=== PATIENT | female | born 1950 | race Caucasian/White ===

== ENCOUNTER 2018-03-01 08:47 | Observation (INO) | payer MEDICARE, OTHER ==
--- NOTE | 2018-03-01 09:38 | ED ---
Neuro HPI - General Chief Complaint: Neuro Symptoms/Deficit Stated Complaint: stroke symptoms, poss heart attack Time Seen by Provider: 03/01/18 09:02 Source: patient, RN notes reviewed Mode of arrival: wheelchair Limitations: no limitations - History of Present Illness Is the patient presenting with stroke symptoms?: Yes Initial Comments: This is a 60-year-old female who states she had the onset of upon waking at 3 AM after having gone to bed at 10:30 PM the night before of right-sided tingling and weakness. She also states she had some brief chest pain that lasted for about 2 minutes mild in severity she has some nausea. She states she still has the weakness and numbness. She states she took some aspirin at about 3 AM. No more chest pain. She had nausea with diarrhea this started around the same time no vomiting. No prior history of strokes or heart attack. No trauma no other modifying factors. - Related Data Home Medications: Home Medications Medication Instructions Recorded Confirmed Aspirin 81 mg PO ONCE 03/01/18 03/01/18 Allergies/Adverse Reactions: Allergies Allergy/AdvReac Type Severity Reaction Status Date / Time No Known Allergies Allergy Verified 03/01/18 09:22 Review of Systems ROS Statement: Those systems with pertinent positive or pertinent negative responses have been documented in the HPI. ROS Other: All systems not noted in ROS Statement are negative. General Exam - General Exam Comments Initial Comments: This a well-developed well-nourished awake alert oriented 3 female Limitations: no limitations General appearance: alert, anxious Head exam: Present: atraumatic, normocephalic, normal inspection Eye exam: Present: normal appearance, PERRL, EOMI. Absent: scleral icterus, conjunctival injection, periorbital swelling ENT exam: Present: normal exam, mucous membranes moist Neck exam: Present: normal inspection. Absent: tenderness, meningismus, lymphadenopathy Respiratory exam: Present: normal lung sounds bilaterally. Absent: respiratory distress, wheezes, rales, rhonchi, stridor Cardiovascular Exam: Present: regular rate, normal rhythm, normal heart sounds. Absent: systolic murmur, diastolic murmur, rubs, gallop, clicks GI/Abdominal exam: Present: soft, normal bowel sounds. Absent: distended, tenderness, guarding, rebound, rigid Extremities exam: Present: normal inspection, normal capillary refill. Absent: full ROM, tenderness, pedal edema, joint swelling, calf tenderness Back exam: Present: normal inspection Neurological exam: Present: alert, oriented X3, CN II-XII intact, motor sensory deficit (Diminished sensation and motor strength right upper lower extremity.) Psychiatric exam: Present: normal affect, normal mood Skin exam: Present: warm, dry, intact, normal color. Absent: rash Stroke MDM - Lab Data Result diagrams: 03/01/18 09:30 03/01/18 09:30 Lab Results 03/01/18 03/01/18 03/01/18 Range/Units 09:30 09:30 09:30 WBC 7.1 (3.8-10.6) k/uL RBC 5.01 (3.80-5.40) m/uL Hgb 15.2 (11.4-16.0) gm/dL Hct 45.5 (34.0-46.0) % MCV 90.7 (80.0-100.0) fL MCH 30.3 (25.0-35.0) pg MCHC 33.5 (31.0-37.0) g/dL RDW 13.2 (11.5-15.5) % Plt Count 289 (150-450) k/uL Neutrophils % 67 % Lymphocytes % 23 % Monocytes % 6 % Eosinophils % 2 % Basophils % 1 % Neutrophils # 4.8 (1.3-7.7) k/uL Lymphocytes # 1.6 (1.0-4.8) k/uL Monocytes # 0.4 (0-1.0) k/uL Eosinophils # 0.1 (0-0.7) k/uL Basophils # 0.0 (0-0.2) k/uL PT (9.0-12.0) sec INR (<1.2) APTT (22.0-30.0) sec Sodium 140 (137-145) mmol/L Potassium 4.3 (3.5-5.1) mmol/L Chloride 108 H (98-107) mmol/L Carbon Dioxide 23 (22-30) mmol/L Anion Gap 9 mmol/L BUN 24 H (7-17) mg/dL Creatinine 0.68 (0.52-1.04) mg/dL Est GFR (CKD-EPI)AfAm >90 (>60 ml/min/1.73 sqM) Est GFR (CKD-EPI)NonAf >90 (>60 ml/min/1.73 sqM) Glucose 113 H (74-99) mg/dL Calcium 9.5 (8.4-10.2) mg/dL Total Bilirubin 0.7 (0.2-1.3) mg/dL AST 27 (14-36) U/L ALT 40 (9-52) U/L Alkaline Phosphatase 108 (38-126) U/L Total Creatine Kinase 37 (30-135) U/L CK-MB (CK-2) 0.4 (0.0-2.4) ng/mL CK-MB (CK-2) Rel Index 1.1 Troponin I <0.012 (0.000-0.034) ng/mL Total Protein 7.4 (6.3-8.2) g/dL Albumin 4.2 (3.5-5.0) g/dL 03/01/18 Range/Units 09:30 WBC (3.8-10.6) k/uL RBC (3.80-5.40) m/uL Hgb (11.4-16.0) gm/dL Hct (34.0-46.0) % MCV (80.0-100.0) fL MCH (25.0-35.0) pg MCHC (31.0-37.0) g/dL RDW (11.5-15.5) % Plt Count (150-450) k/uL Neutrophils % % Lymphocytes % % Monocytes % % Eosinophils % % Basophils % % Neutrophils # (1.3-7.7) k/uL Lymphocytes # (1.0-4.8) k/uL Monocytes # (0-1.0) k/uL Eosinophils # (0-0.7) k/uL Basophils # (0-0.2) k/uL PT 9.7 (9.0-12.0) sec INR 1.0 (<1.2) APTT 22.8 (22.0-30.0) sec Sodium (137-145) mmol/L Potassium (3.5-5.1) mmol/L Chloride (98-107) mmol/L Carbon Dioxide (22-30) mmol/L Anion Gap mmol/L BUN (7-17) mg/dL Creatinine (0.52-1.04) mg/dL Est GFR (CKD-EPI)AfAm (>60 ml/min/1.73 sqM) Est GFR (CKD-EPI)NonAf (>60 ml/min/1.73 sqM) Glucose (74-99) mg/dL Calcium (8.4-10.2) mg/dL Total Bilirubin (0.2-1.3) mg/dL AST (14-36) U/L ALT (9-52) U/L Alkaline Phosphatase (38-126) U/L Total Creatine Kinase (30-135) U/L CK-MB (CK-2) (0.0-2.4) ng/mL CK-MB (CK-2) Rel Index Troponin I (0.000-0.034) ng/mL Total Protein (6.3-8.2) g/dL Albumin (3.5-5.0) g/dL - NIH Stroke Scale 1a. Level of Consciousness: (0) alert 1b. LOC Questions: (0) answers correctly 1c. LOC Commands: (0) performs tasks correctly 2. Best Gaze: (0) normal 3. Visual: (0) no visual loss 4. Facial Palsy: (0) normal symmetrical movement 5a. Motor Arm Left: (0) no drift 5b. Motor Arm Right: (0) no drift 6a. Motor Leg Left: (0) no drift 6b. Motor Leg Right: (0) no drift 7. Limb Ataxia: (0) absent 8. Sensory: (0) normal 9. Best Language: (0) no aphasia 10. Dysarthria: (0) normal 11. Extinction/Inattention: (0) no abnormality - Medical Decision Making Reevaluation the patient on several occasions reveals she had improvement the presentation appears consistent with a TIA at this time. She did say she went to bed at 10:30 last night and woke up at 3:00 symptoms she describes the initial presentation was beyond TPA intervention. The CT shows no evidence of obstruction the major vessels. Patient will be admitted for inpatient evaluation and neurological consultation noncontrast MRI of the brain. I did discuss case Dr. Kathleen. - EKG Data -: EKG Interpreted by Me EKG shows normal: sinus rhythm (Sinus rhythm of 96 IL interval 154 QRS 70 QT since QTC 342/[address].) Past Medical History Past Medical History: Hypertension History of Any Multi-Drug Resistant Organisms: None Reported Past Surgical History: Cholecystectomy, Tonsillectomy, Tubal Ligation Past Psychological History: No Psychological Hx Reported Smoking Status: Never smoker Past Alcohol Use History: None Reported Past Drug Use History: None Reported Course Vital Signs 03/01/18 03/01/18 03/01/18 08:53 09:13 09:30 Temperature 99.6 F Pulse Rate 100 96 96 Respiratory 18 Rate Blood Pressure 151/84 142/83 O2 Sat by Pulse 93 L 39 L Oximetry 03/01/18 03/01/18 03/01/18 10:00 10:30 11:00 Temperature Pulse Rate 87 87 84 Respiratory Rate Blood Pressure 149/91 135/81 O2 Sat by Pulse 90 L Oximetry 03/01/18 03/01/18 11:30 12:00 Temperature Pulse Rate 82 80 Respiratory 18 18 Rate Blood Pressure 130/83 132/88 O2 Sat by Pulse 93 L Oximetry - Reevaluation(s) Reevaluation #1: 03/01/18 12:25 Evaluation patient reveals she felt improvement she was able ambulate with some assistance. This was observed twice. Critical Care Time Critical Care Time: Yes Critical Care Time: 33 minutes of critical care time which includes initial presentation with history physical labs x-rays multiple re-evaluations the patient. Discussed with patient family and different occasions discussion with the admitting physician admission orders and documentation of the above. Patient did initially demonstrate some slight apparent weakness to the upper and lower extremity and the right the NIH stroke scale however was 0. The above has improved. Disposition Clinical Impression: Transient cerebral ischemia Disposition: ADMITTED IP TO THIS [facility] Condition: Stable Referrals: Lane Morgan DO [Primary Care Provider] - 1-2 days
[2018-03-01 09:55] LABS: Basophils % (A) 1 %; Eosinophils # (A) 0.1 k/uL (0-0.7); Eosinophils % (A) 2 %; HCT 45.5 % (34.0-46.0); HGB 15.2 gm/dL (11.4-16.0); Lymphocytes # (A) 1.6 k/uL (1.0-4.8); Lymphocytes % (A) 23 %; MCH 30.3 pg (25.0-35.0); MCHC 33.5 g/dL (31.0-37.0); MCV 90.7 fL (80.0-100.0); Mean Platelet Volume 7.4; Monocytes # (A) 0.4 k/uL (0-1.0); Monocytes % (A) 6 %; Neutrophils # (A) 4.8 k/uL (1.3-7.7); Neutrophils % (A) 67 %; Platelet Count 289 k/uL (150-450); RBC 5.01 m/uL (3.80-5.40); RDW 13.2 % (11.5-15.5); WBC 7.1 k/uL (3.8-10.6)
[2018-03-01 10:06] LABS: ALT 40 U/L (9-52); AST 27 U/L (14-36); Albumin 4.2 g/dL (3.5-5.0); Alkaline Phosphatase 108 U/L (38-126); Anion Gap 9 mmol/L; Blood Urea Nitrogen 24 mg/dL (7-17); Calcium 9.5 mg/dL (8.4-10.2); Carbon Dioxide 23 mmol/L (22-30); Chloride 108 mmol/L (98-107); Glucose 113 mg/dL (74-99); Potassium 4.3 mmol/L (3.5-5.1); Sodium 140 mmol/L (137-145); Total Bilirubin 0.7 mg/dL (0.2-1.3); Total Protein 7.4 g/dL (6.3-8.2)
[2018-03-01 10:07] LABS: Partial Thromboplastin Time 22.8 sec (22.0-30.0); Prothrombin Time 9.7 sec (9.0-12.0)
[2018-03-01 10:21] LABS: Creatine Kinase 37 U/L (30-135)
[2018-03-01 10:34] LABS: Creatine Kinase MB 0.4 ng/mL (0.0-2.4); Troponin I <0.012 ng/mL (0.000-0.034)
--- NOTE | 2018-03-01 10:44 | CT ---
EXAMINATION TYPE: CT brain wo con for TPA DATE OF EXAM: 03/01/2018 COMPARISON: None HISTORY: Right arm numbness CT DLP: [address] of the brain was performed. The ventricles, basal cisterns and sulci overlying the cerebral convexities demonstrate mild enlargem ent. There is no evidence for intracranial hemorrhage or sulcal effacement. There is decreased attenuation about the periventricular white matter and deep white matter of both c erebral hemispheres, compatible with chronic small vessel ischemia. Differential diagnosis does inclu de demyelination. No mass effects are seen.No midline shift. Osseous calvarium is intact. If symptoms persist consider MRI. IMPRESSION: 1. Age related atrophic and chronic small vessel ischemic change without acute intracranial process s een at this time.
--- NOTE | 2018-03-01 11:23 | XR ---
EXAMINATION TYPE: XR chest 2V DATE OF EXAM: 03/01/2018 COMPARISON: 03/05/2015 HISTORY: Chest pain and nausea TECHNIQUE: Frontal and lateral views of the chest are obtained. FINDINGS: There is no focal air space opacity, pleural effusion, or pneumothorax seen. Slight right hemidiaphragm elevation is chronic. The cardiac silhouette size is enlarged. The osseous structures are intact. Minimal degenerative changes of the thoracic spine are noted. Cholecystectomy clips are incidentally seen. IMPRESSION: No acute cardiopulmonary process.
--- NOTE | 2018-03-01 11:29 | CT ---
EXAMINATION TYPE: CT angio head neck DATE OF EXAM: 03/01/2018 HISTORY: Right arm numbness COMPARISON: NONE CT DLP: 515.2 mGycm. Automated Exposure Control for Dose Reduction was Utilized. TECHNIQUE: CTA scan of the neck is performed with IV Contrast, patient injected with 60 mL of Isovue 370, axial images are obtained, coronal and sagittal reformatted images are reviewed. Three-D recons tructed images are created on an independent workstation and reviewed. FINDINGS: Carotid/Vascular Structures: There is a conventional three-vessel branch pattern of the aortic arch. No hemodynamically significant stenosis is seen of either cervical portion of the common carotid or i nternal carotid arteries. Very minimal atherosclerosis is seen of the aortic arch. Vertebral arteries are codominant and patent. Basilar artery is also patent. Proximal aspect of the PICA is not seen al though distal aspect feels, likely related to slice selection given its very small size. A left posterior communicating artery is not definitively seen and may be diminutive or congenitally absent. Therefore the [place] is not definitively intact. No large vessel vascular occlusion or hemodynamically significant stenosis is seen. No intracranial aneurysm nor arterial venous malfor mation is seen. No aneurysmal outpouching is identified. Other: Minimal dependent atelectasis seen of the lung apices. Moderate multilevel degenerative change s of the cervical spine are present. Paranasal sinuses are well aerated other than scant amount of mu cosal thickening within the ethmoid sinuses. Mastoid air cells are well aerated. Marta bullosa are i ncidentally seen as well as a small leftward nasal septal spur. IMPRESSION: No evidence of large vessel vascular occlusion of the head or neck, aneurysmal outpouchi ng, or dissection.
[2018-03-01] MEDS ORDERED: SODIUM CHLORIDE 0.9% 1,000 ML IV SCH (12:30)
[2018-03-01] MEDS: ACETAMINOPHEN TAB 325 MG TAB PO PRN ×2 (14:30→19:48)
--- NOTE | 2018-03-01 17:37 | MR ---
EXAMINATION TYPE: MR brain wo con DATE OF EXAM: 03/01/2018 COMPARISON: None HISTORY: Vertigo, nausea, unsteady gait Standard multiplanar, multisequence MRI departmental protocol Multiplanar, multisequence images of the brain were acquired. Diffusion weighted imaging was performe d. FINDINGS: On the T2 and FLAIR images there is a 1 cm focus of increased signal in the left posterior temporal lobe at the henderson-white matter junction. Cerebellum is intact. There is no evidence of pattern cleaner ior fossa mass. There is 3 mm focus in the white matter left posterior frontal lobe. There are 3 mm f oci in the white matter of the left and right posterior frontal lobes near the convexity. There is no midline shift. There is no mass effect. There is no sign of intracranial hemorrhage. Corpus callosum appears normal. Brainstem is intact. Sella turcica appears normal. IMPRESSION: There are a few white matter lesions as above that are nonspecific. These are not near the ventricles and I do not suspect demyelinating disease. No evidence of a cortical infarct. No evidence of hemorr jack.
[2018-03-01] MEDS ORDERED: ATORVASTATIN 20 MG TAB PO SCH (21:00)
--- NOTE | 2018-03-02 01:30 | CONS ---
CONSULTATION DATE OF CONSULTATION: March 01, 2018. CHIEF COMPLAINT: Transient ischemic attack. HISTORY OF PRESENT ILLNESS: Mrs. Pearce is a pleasant 68-year-old female who is being evaluated by the neurology service per the request of Dr. Kathleen for a transient ischemic attack. The patient was brought into [facility] emergency room after she woke up this morning with symptoms of right-sided weakness and numbness. She denied having any symptoms when she went to sleep last night. In the emergency room, she was found to have some sensory deficit on the right side along with mild weakness. Overall, her symptoms lasted approximately 2 hours after her arrival to the emergency room and they resolved spontaneously. At the time of my evaluation, she still notices mild numbness involving her right lateral side region and denies any weakness. She did not have any facial symptoms. A CT scan of the brain was done in the emergency room which was normal. Except for some generalized atrophy and small-vessel ischemic changes. A CT angiogram of the brain and neck were done which showed no stenosis or aneurysms. She did undergo an MRI of the brain. The study showed no evidence of any acute ischemia but there were some white matter changes described in the study likely consistent with small vessel disease. The patient does report a family history of strokes. She also states that she was recently diagnosed with hypertension and was given a prescription for hydrochlorothiazide 25 mg daily last week but she did not start the medication. She was also found to have dyslipidemia a couple of weeks ago but it was decided to try diet modification before starting treatment. She was also not on any antiplatelet medications at home. Her CBC and cardiac enzymes were normal. Her comprehensive metabolic profile was normal except for mild hyperglycemia at 113 and slightly elevated BUN at 24. At the time of my evaluation, she is sitting up in her bed and appears to be in no acute distress. She continues to report resolution of her neurological symptoms except for mild numbness involving her right lateral thigh. PAST MEDICAL HISTORY: Recently diagnosed hypertension and dyslipidemia, history of cholecystectomy, tonsillectomy, tubal ligation. SOCIAL HISTORY: She denies any tobacco or alcohol or drug use. FAMILY HISTORY: Positive for stroke. MEDICATIONS: Home medications the patient is not taking any medications. As mentioned above, she was recently prescribed hydrochlorothiazide but she never started the medication. ALLERGIES: No known drug allergies. REVIEW OF SYSTEMS: CONSTITUTIONAL: Negative. EYES: Negative. ENT: Negative. CARDIOVASCULAR: Positive for chest pain earlier today, but this has resolved. RESPIRATORY: Negative. NEUROLOGICAL: As mentioned above. GASTROINTESTINAL: Negative. GENITOURINARY: Negative. PSYCHIATRIC: Negative. MUSCULOSKELETAL: Negative. DERMATOLOGICAL: Negative. ENDOCRINE: Negative. PHYSICAL EXAM: Vital signs show a temperature of 97.8, pulse 84, respirations 16, blood pressure 157/94. GENERAL APPEARANCE: The patient is a well-developed female, who appears to be in no acute distress. HEENT: Normocephalic, atraumatic, no facial asymmetry is seen. Extraocular muscles are intact. NECK: Supple with no masses felt. CARDIOVASCULAR: Regular rate and rhythm. ABDOMEN: Nontender nondistended. Extremities showed no edema or clubbing. Neurological exam: The patient is awake and oriented x3. Speech and language are normal. Strength is full in all 4 extremities. Sensory exam showed diminished light touch sensation on the right lateral thigh and was otherwise normal. No pronator drift is seen. No dysdiadochokinesia is noticed. Myrmpd-kipi-tytlyc testing showed no dysmetria. No tremors or seizure-like activity is seen. No facial asymmetry is noticed on cranial nerve testing. IMPRESSION: 1. Transient ischemic attack. 2. Right hemiparesis, resolved. 3. Right-sided numbness, resolved. 4. Right lateral thigh sensory deficit. 5. Hypertension. 6. Dyslipidemia. RECOMMENDATION: The patient does appear to have suffered a transient ischemic attack with a transient episode of right hemiparesis and right-sided numbness involving her upper and lower extremity. Those symptoms have resolved except for mild sensory deficit involving her right lateral thigh. 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 Further outpatient neurophysiological workup will be needed for this. Her MRI of the brain showed no evidence of any acute ischemia. She will likely need further neurological follow up given her white matter changes. For now, continue aspirin 81 mg daily. I will start her on hydrochlorothiazide 25 mg daily which was recently prescribed by Dr. Morgan but the patient never started. I will also start her on Lipitor 20 mg daily. I will order a fasting lipid panel and serum homocystine level. I reviewed with her the results of her CT angiograms all of which were normal. The patient's stroke risk factors include her age, family history, hypertension, dyslipidemia, and this current transient ischemic attack. Continue neuro checks. I will continue to follow with you. Further recommendations to follow. Thank you for allowing me to participate in the care of your patient. If you have any questions, please feel free to contact me. HORACE / ROBERTH: [id number] /
--- NOTE | 2018-03-02 01:51 | HP ---
HISTORY AND PHYSICAL DATE OF SERVICE: March 01, 2018. DATE OF ADMISSION: 03/01/2018 PRESENTING COMPLAINT: Right-sided weakness, numbness. HISTORY OF PRESENTING COMPLAINT: A very pleasant 62 -year-old patient of Dr. Lane Morgan. Chronic stable medical conditions include asthma, GERD, newly diagnosed hypertension. The patient at 3 o'clock this morning noticed numbness in the right arm and right leg, felt also a bit weak, took an aspirin and went back to sleep. Woke around 5 o'clock, felt weak again in the right arm and right leg. Walking she was a bit wobbly. did notice slight slurring of the speech and vision was a bit blurry. Subsequently decided to come down to the ER. The patient did have a CT scan of the brain and CT angio of the brain, both were negative. Did not meet the stroke score for any tPA. The patient has not gone back to her normal self. Still feels subtle weakness, numbness on the right side. I did go and order MRI of the brain and that showed some white matter changes. Neurology was consulted. The patient is admitted. REVIEW OF SYSTEMS: CONSTITUTIONAL: None. HEENT as above. RESPIRATORY: Asthma controlled. CARDIOVASCULAR none. GASTROINTESTINAL heartburn. GENITOURINARY none. MUSCULOSKELETAL none. DERMATOLOGICAL, HEMATOLOGIC, LYMPHATIC: none. PSYCHIATRY none. NEUROLOGICAL as above. PAST MEDICAL HISTORY: Asthma, GERD, newly diagnosed hypertension. PAST SURGICAL HISTORY: Cholecystectomy, tonsillectomy, tubal ligation, ERCPs, sphincterotomy for stone extraction and lap blanca. SOCIAL HISTORY: No smoking, no alcohol, . Retired as a cook. FAMILY HISTORY: Coronary artery disease and dementia. HOME MEDICATIONS: Aspirin 81 mg once taken at home today. ALLERGIES: None. PHYSICAL EXAMINATION: VITAL SIGNS: On presentation temperature 99.6, pulse 100m respiratory 18, blood pressure 115/84, pulse ox 93 percent on room air. GENERAL APPEARANCE well built. BMI 39.4, sitting up, awake. EYES: Pupils are equal. Conjunctivae normal. HEENT: External appearance of nose and ears normal. Oral cavity normal. NECK: JVD not raised. Mass not palpable. RESPIRATORY: Effort normal. LUNGS: Clear. CARDIOVASCULAR: 1st and 2nd sounds normal. No edema. ABDOMEN: Soft, nontender. Liver and spleen not palpable. LYMPHATIC: No lymph nodes palpable in the neck and axilla. PSYCHIATRY: Alert and oriented times three. Mood and affect normal. NEUROLOGICAL: Pupils equal. Cranial nerves grossly intact. Power and sensation in the right arm and right leg is 4 x 5 sensation grossly preserved, possibly a bit hyper reflex in the right lower extremity. INVESTIGATIONS: White count 7.1, hemoglobin 15.2, potassium 4.3, BUN 24, creatinine 0.6. Troponin negative. CT angio of the brain, nonspecific. CT scan of brain negative. Chest x-ray film personally reviewed by me shows slightly elevated right diaphragm. Heart is otherwise normal. EKG tracing personally reviewed by me shows normal sinus rhythm. ASSESSMENT: 1. Possible transient ischemic attack in the left middle cerebral artery area and the patient's MRIs not showing any acute stroke, but does have some nonspecific finding in the white matter in a right-handed patient. 2. Essential hypertension. 3. Obesity BMI 39.4. PLAN: Patient is started on aspirin, Lipitor. Neuro checks are in place. Lovenox for DVT prophylaxis. Neurology was consulted. Care was discussed in detail with the patient. The patient, her and the son and daughter and all questions were answered. Copy to Dr. Lane Morgan. MMODL / IJN: [id number] /
[2018-03-02] MEDS: LISINOPRIL-HCTZ 10-12.5 MG 1 EACH TAB PO SCH ×2 (03:40→09:11)
[2018-03-02] MEDS: ENOXAPARIN 40 MG/0.4 ML SYRINGE SQ SCH ×2 (03:40→09:12)
[2018-03-02 07:38] LABS: Cholesterol 187 mg/dL (<200); HDL Cholesterol 47 mg/dL (40-60); LDL Cholesterol,Calculated 119 mg/dL (0-99); Triglycerides 103 mg/dL (<150)
[2018-03-02] MEDS ORDERED: ASPIRIN 81 MG PO SCH (09:00)
[2018-03-02] MEDS ORDERED: HYDROCHLOROTHIAZIDE 25 MG TAB PO SCH (09:00)
[2018-03-02 09:17] VITALS: TEMP 97.7
--- NOTE | 2018-03-02 10:17 | ECHOF ---
Referral Reason:Thrombus MEASUREMENTS -------- HEIGHT: 165.1 cm WEIGHT: 107.5 kg BP: 132/88 RVIDd: 2.6 cm (< 3.3) IVSd: 1.2 cm (0.6 - 1.1) LVIDd: 4.6 cm (3.9 - 5.3) LVPWd: 1.1 cm (0.6 - 1.1) IVSs: 1.5 cm LVIDs: 3.3 cm LVPWs: 1.5 cm LA Diam: 3.1 cm (2.7 - 3.8) LAESV Index (A-L): 19.19 ml/m Ao Diam: 2.9 cm (2.0 - 3.7) AV Cusp: 2.0 cm (1.5 - 2.6) MV EXCURSION: 12.039 mm (> 18.000) MV EF SLOPE: 43 mm/s (70 - 150) EPSS: 0.2 cm MV E Aneesh: 0.77 m/s MV DecT: 228 ms MV A Aneesh: 0.97 m/s MV E/A Ratio: 0.79 AV maxP.17 mmHg AV meanP.52 mmHg AR PHT: 469 ms RAP: 5.00 mmHg RVSP: 35.40 mmHg FINDINGS -------- Sinus rhythm. This was a technically adequate study. The left ventricular size is normal. There is borderline concentric left ventricular hypertrophy. Overall left ventricular systolic function is normal with, an EF between 60 - 65 %. Sigmoid shaped septum with focal hypertrophy of the basal septum. The right ventricle is normal in size. Normal LA size by volume 22+/-6 ml/m2. The right atrium is normal in size. There is mild aortic valve sclerosis. There is mild aortic regurgitation. There is mild aortic st enosis present. Peak/mean gradient across the Aortic Valve is 20.17mmHg / 9.52mmHg. The mitral valve is normal. Mild tricuspid regurgitation present. There is mild pulmonary hypertension. The right ventricular systolic pressure, as measured by Doppler, is 35.40mmHg. There is no pulmonic regurgitation present. The aortic root size is normal. Normal inferior vena cava with normal inspiratory collapse consistent with estimated right atrial pre ssure of 5 mmHg. There is no pericardial effusion. CONCLUSIONS -------- 1. Sinus rhythm. 2. This was a technically adequate study. 3. The left ventricular size is normal. 4. There is borderline concentric left ventricular hypertrophy. 5. Overall left ventricular systolic function is normal with, an EF between 60 - 65 %. 6. Sigmoid shaped septum with focal hypertrophy of the basal septum. 7. The right ventricle is normal in size. 8. Normal LA size by volume 22+/-6 ml/m2. 9. The right atrium is normal in size. 10. There is mild aortic valve sclerosis. 11. There is mild aortic regurgitation. 12. There is mild aortic stenosis present. 13. Peak/mean gradient across the Aortic Valve is 20.17mmHg / 9.52mmHg. 14. The mitral valve is normal. 15. Mild tricuspid regurgitation present. 16. There is mild pulmonary hypertension. 17. The right ventricular systolic pressure, as measured by Doppler, is 35.40mmHg. 18. There is no pulmonic regurgitation present. 19. The aortic root size is normal. 20. Normal inferior vena cava with normal inspiratory collapse consistent with estimated right atrial pressure of 5 mmHg. 21. There is no pericardial effusion. WREATH MACHINE OPERATOR: Christina David RDCS
[2018-03-02 12:08] VITALS: BP 128/77; PULSE 82; RESP 16
--- NOTE | 2018-03-03 03:00 | DS ---
DISCHARGE SUMMARY DATE OF ADMISSION: March 01, 2018. DATE OF DISCHARGE: March 02, 2018. FINAL DIAGNOSES: 1. Possible transient ischemic attack. 2. Essential hypertension. 3. Obesity BMI 39.4. HOSPITAL COURSE: This patient presented with right-sided weakness, numbness, trouble walking. The patient's speech and vision also affected. The patient reverted back to near normal self. The patient did have an MRI did not show any acute stroke. 2D echocardiogram showed EF of 60-[address] angio of the brain and neck did not show any critical stenosis. Care was discussed at length with the patient. Blood pressure is better controlled by the time of discharge. LDL came back at 119. Dr. Steward will work up the patient for peripheral causes too. On examination afebrile. Pulse 72, blood pressure 120/77. DISCHARGE MEDICATIONS: 1. Aspirin 81 mg a day. 2. Lipitor 20 mg at bedtime. 3. Zestoretic 01/26.5 one tab p.o. b.i.d. FOLLOWUP: Follow up with Dr. Morgan on 03/12/2018. Follow up with Dr. Steward in [address] Morgan. MMODL / IJN: [id number] /
== END 2018-03-02 14:47 | disposition home or self-care (01) ==
LOC: EC 08:47 → 3SCARD 12:32
PROVIDERS: ADMIT Hospitalist; ATTEND Hospitalist
DX: G45.9 Transient cerebral ischemic attack, unspecified (principal); R29.700 NIHSS score 0; J45.909 Unspecified asthma, uncomplicated; R07.89 Other chest pain; K21.9 Gastro-esophageal reflux disease without esophagitis; G81.91 Hemiplegia, unspecified affecting right dominant side; R20.0 Anesthesia of skin; E66.9 Obesity, unspecified; R73.9 Hyperglycemia, unspecified; I10 Essential (primary) hypertension; E78.5 Hyperlipidemia, unspecified; Z68.39 Body mass index [BMI] 39.0-39.9, adult; Z81.8 Family history of other mental and behavioral disorders; Z90.49 Acquired absence of other specified parts of digestive tract; Z79.82 Long term (current) use of aspirin; Z98.51 Tubal ligation status; Z82.49 Family history of ischemic heart disease and other diseases of the circulatory system; Z82.3 Family history of stroke
CPT/HCPCS: 96372; 99291; 36415; 93005; 93306; 97161; 97165; 80061; 80053; 82550; 82553; 84484; 85025; 85610; 85730; 83090; 71046; 70496; 70450; 70498; 70551; G0378 ×2; J1650; Q9967

== ENCOUNTER 2018-03-18 07:42 | Emergency (ER) | payer MEDICARE ==
[2018-03-18 07:47] VITALS: TEMP 98.3
[2018-03-18] MEDS ORDERED: TOPICAL SKIN ADHESIVE 1 EACH AMP TOPICAL ONE (08:02)
[2018-03-18 08:28] LABS: Basophils % (A) 0 %; Eosinophils # (A) 0.1 k/uL (0-0.7); Eosinophils % (A) 1 %; HCT 43.7 % (34.0-46.0); Lymphocytes # (A) 1.6 k/uL (1.0-4.8); Lymphocytes % (A) 15 %; MCH 30.7 pg (25.0-35.0); MCHC 34.5 g/dL (31.0-37.0); MCV 89.1 fL (80.0-100.0); Mean Platelet Volume 7.8; Monocytes # (A) 0.4 k/uL (0-1.0); Monocytes % (A) 4 %; Neutrophils # (A) 8.3 k/uL (1.3-7.7); Neutrophils % (A) 78 %; Platelet Count 283 k/uL (150-450); RDW 12.7 % (11.5-15.5); WBC 10.5 k/uL (3.8-10.6)
--- NOTE | 2018-03-18 08:28 | ED ---
General Adult HPI - General Chief complaint: Recheck/Abnormal Lab/Rx Stated complaint: High BP Time Seen by Provider: 03/18/18 07:48 Source: patient, RN notes reviewed Mode of arrival: wheelchair Limitations: no limitations - History of Present Illness Initial comments: This a 68-year-old female presents emergency Department chief complaint of hypertension. Patient states that she recently had change her blood pressure medication secondary to possible TIA. Patient states she only takes lisinopril 10 mg twice a day. Patient states she is scheduled for next dose in one hour. Patient states that she's been checking her blood pressure every day since she has been out. She had multiple readings this morning with systolic 160-170 with diastolic 100 120. Patient states that she is also had some palpitations like her heart was racing overnight. Patient denies any dietary changes. Denies chest pain, shortness breath, headache, dizziness, focal weakness, leg swelling, nausea vomiting. - Related Data Previous Rx's Medication Instructions Recorded Aspirin 81 mg PO DAILY chew 03/02/18 Atorvastatin [Lipitor] 20 mg PO HS #30 tab 03/02/18 Lisinopril-Hctz 10-12.5 mg 1 each PO BID #60 tab 03/02/18 [Zestoretic 10-12.5] Allergies Allergy/AdvReac Type Severity Reaction Status Date / Time No Known Allergies Allergy Verified 03/18/18 07:47 Review of Systems ROS Statement: Those systems with pertinent positive or pertinent negative responses have been documented in the HPI. ROS Other: All systems not noted in ROS Statement are negative. Past Medical History Past Medical History: Asthma, GERD/Reflux, Hypertension, Pneumonia Additional Past Medical History / Comment(s): Pt states she was recently told she has HTN and her lipids are elevated, recent fluid involving L eye retina-to see opthamologist tomorrow, vertigo, migraine last week, seasonal allergies, arthritis r hand 3rd finger. History of Any Multi-Drug Resistant Organisms: None Reported Past Surgical History: Cholecystectomy, Tonsillectomy, Tubal Ligation Additional Past Surgical History / Comment(s): ERCP with sphincterotomy with stone extraction and lap blanca, colonoscopies-normal, Past Anesthesia/Blood Transfusion Reactions: Motion Sickness, Postoperative Nausea & Vomiting (PONV) Past Psychological History: No Psychological Hx Reported Smoking Status: Never smoker - Past Family History Father Family Medical History: Coronary Artery Disease (CAD), Dementia, Myocardial Infarction ([place]) Additional Family Medical History / Comment(s): Father of a [place] at the age of 87yrs. He had 7 vessel CABG and a TIA Mother Family Medical History: Cancer Additional Family Medical History / Comment(s): Mother had bladder cancer. She had benign colon polyps. She is 86yrs old. General Exam Limitations: no limitations General appearance: alert, in no apparent distress Head exam: Present: atraumatic, normocephalic, normal inspection Eye exam: Present: normal appearance, PERRL, EOMI. Absent: scleral icterus, conjunctival injection, periorbital swelling ENT exam: Present: normal exam, normal oropharynx, mucous membranes moist Neck exam: Present: normal inspection, full ROM. Absent: tenderness, meningismus, lymphadenopathy Respiratory exam: Present: normal lung sounds bilaterally. Absent: respiratory distress, wheezes, rales, rhonchi, stridor Cardiovascular Exam: Present: regular rate, normal rhythm, normal heart sounds. Absent: systolic murmur, diastolic murmur, rubs, gallop, clicks GI/Abdominal exam: Present: soft, normal bowel sounds. Absent: distended, tenderness, guarding, rebound, rigid Neurological exam: Present: alert, oriented X3, CN II-XII intact Skin exam: Present: warm, dry, intact, normal color. Absent: rash Course Vital Signs 03/18/18 07:43 Temperature 98.3 F Pulse Rate 100 Respiratory 18 Rate Blood Pressure 147/82 O2 Sat by Pulse 94 L Oximetry EKG Findings - EKG Comments: EKG Findings:: EKG performed at 8:22 normal sinus rhythm with a rate of 94 RI 156 QRS 66 QT/QTC 3:30/412 Medical Decision Making - Medical Decision Making 68-year-old female presented for concerns of hypertension and intermittent palpitations during the night. Patient had normal lab work, EKG is unremarkable normal sinus rhythm and no arrhythmias noted. Patient's blood pressure is stable. Patient will be discharged with close follow-up and return parameters were discussed. - Lab Data Result diagrams: 03/18/18 08:15 03/18/18 08:15 Lab Results 03/18/18 03/18/18 03/18/18 Range/Units 08:15 08:15 08:15 WBC 10.5 (3.8-10.6) k/uL RBC 4.90 (3.80-5.40) m/uL Hgb 15.0 (11.4-16.0) gm/dL Hct 43.7 (34.0-46.0) % MCV 89.1 (80.0-100.0) fL MCH 30.7 (25.0-35.0) pg MCHC 34.5 (31.0-37.0) g/dL RDW 12.7 (11.5-15.5) % Plt Count 283 (150-450) k/uL Neutrophils % 78 % Lymphocytes % 15 % Monocytes % 4 % Eosinophils % 1 % Basophils % 0 % Neutrophils # 8.3 H (1.3-7.7) k/uL Lymphocytes # 1.6 (1.0-4.8) k/uL Monocytes # 0.4 (0-1.0) k/uL Eosinophils # 0.1 (0-0.7) k/uL Basophils # 0.0 (0-0.2) k/uL Sodium 140 (137-145) mmol/L Potassium 4.2 (3.5-5.1) mmol/L Chloride 108 H (98-107) mmol/L Carbon Dioxide 20 L (22-30) mmol/L Anion Gap 12 mmol/L BUN 19 H (7-17) mg/dL Creatinine 0.66 (0.52-1.04) mg/dL Est GFR (CKD-EPI)AfAm >90 (>60 ml/min/1.73 sqM) Est GFR (CKD-EPI)NonAf >90 (>60 ml/min/1.73 sqM) Glucose 131 H (74-99) mg/dL Calcium 9.3 (8.4-10.2) mg/dL Magnesium 2.1 (1.6-2.3) mg/dL Total Bilirubin 0.6 (0.2-1.3) mg/dL AST 24 (14-36) U/L ALT 42 (9-52) U/L Alkaline Phosphatase 102 (38-126) U/L Troponin I <0.012 (0.000-0.034) ng/mL Total Protein 7.1 (6.3-8.2) g/dL Albumin 4.2 (3.5-5.0) g/dL Disposition Clinical Impression: Hypertension, Palpitations Disposition: HOME SELF-CARE Condition: Stable Instructions: Heart Palpitations (ED) Additional Instructions: Please return to the Emergency Department if symptoms worsen or any other concerns. Is patient prescribed a controlled substance at d/c from ED?: No Referrals: Lane Morgan DO [Primary Care Provider] - 1-2 days Time of Disposition: 09:21
[2018-03-18 08:38] LABS: ALT 42 U/L (9-52); AST 24 U/L (14-36); Albumin 4.2 g/dL (3.5-5.0); Alkaline Phosphatase 102 U/L (38-126); Anion Gap 12 mmol/L; Blood Urea Nitrogen 19 mg/dL (7-17); Calcium 9.3 mg/dL (8.4-10.2); Carbon Dioxide 20 mmol/L (22-30); Chloride 108 mmol/L (98-107); Glucose 131 mg/dL (74-99); Magnesium 2.1 mg/dL (1.6-2.3); Potassium 4.2 mmol/L (3.5-5.1); Sodium 140 mmol/L (137-145); Total Bilirubin 0.6 mg/dL (0.2-1.3); Total Protein 7.1 g/dL (6.3-8.2)
[2018-03-18 09:28] VITALS: BP 131/87; PULSE 85; RESP 20
== END 2018-03-18 09:47 | disposition home or self-care (01) ==
LOC: EC 07:42
DX: I10 Essential (primary) hypertension (principal); R00.2 Palpitations; Z82.49 Family history of ischemic heart disease and other diseases of the circulatory system
CPT/HCPCS: 36415; 80053; 83735; 84484; 85025; 93005; 99283

== ENCOUNTER → 2018-05-08 | Outpatient (CLI) | payer MEDICARE ==
--- NOTE | 2018-05-12 09:47 | MM ---
Reason for exam: screening (asymptomatic). Last mammogram was performed 14 years and 1 month ago. History: Patient is postmenopausal. Family history of breast cancer in 2 aunts and breast cancer in grandmother. MG 3D Screening Mammo W/Cad Bilateral CC and MLO view(s) were taken. Prior study comparison: April 14, 2004, bilateral screening mammogram. February 28, 2003, bilateral screening mammogram. The breast tissue is heterogeneously dense. This may lower the sensitivity of mammography. There is a upper outer quadrant intramammary lymph node. No significant changes when compared with prior studies. ASSESSMENT: Benign, BI-RAD 2 RECOMMENDATION: Routine screening mammogram of both breasts in 1 year.
== END ==
LOC: RADMAMWWP 11:06
PROVIDERS: ATTEND Family Medicine
DX: Z12.31 Encounter for screening mammogram for malignant neoplasm of breast (principal)
CPT/HCPCS: 77063; 77067

== ENCOUNTER → 2018-10-10 | Outpatient (CLI) | payer MEDICARE | END | disposition home or self-care (01) | LOC: RADUSWWP 13:23 | PROVIDERS: ATTEND Family Medicine | DX: M79.604 Pain in right leg (principal) | CPT/HCPCS: 93922 ==

== ENCOUNTER → 2019-03-08 | Outpatient (CLI) | payer MEDICARE ==
--- NOTE | 2019-03-08 14:08 | XR ---
Left foot HISTORY: Contusion, trauma and pain Reviews of the left foot There is joint space loss at the metatarsophalangeal joint of the first digit with some marginal spur ring, subchondral sclerosis. Alignment is maintained. Cortical thickening along the second metatarsal may be due to prior fracture with healing. Tarsometatarsal joints show some subchondral lucency and sclerosis on the oblique view. There is a plantar spur. Soft tissue swelling is noted. IMPRESSION: No acute fracture or dislocation. Osteoarthritis.
== END | disposition home or self-care (01) ==
LOC: RADXRMAIN 13:12
PROVIDERS: ATTEND Family Medicine
DX: M19.072 Primary osteoarthritis, left ankle and foot (principal)

== ENCOUNTER → 2019-05-10 | Outpatient (CLI) | payer MEDICARE ==
--- NOTE | 2019-05-13 11:10 | MM ---
Reason for exam: screening (asymptomatic). Last mammogram was performed 1 year ago. History: Patient is postmenopausal. Family history of breast cancer in 2 aunts and breast cancer in grandmother. Physical Findings: A clinical breast exam by your physician is recommended on an annual basis and results should be correlated with mammographic findings. MG 3D Screening Mammo W/Cad Bilateral CC and MLO view(s) were taken. Prior study comparison: May 08, 2018, bilateral MG 3d screening mammo w/cad. April 14, 2004, bilateral screening mammogram. There are scattered fibroglandular densities. Finding: There are typically benign round calcifications in the anterior position of the left breast. There is a chronic nodularity in the left breast. There is no discrete abnormality. ASSESSMENT: Benign, BI-RAD 2 RECOMMENDATION: Routine screening mammogram of both breasts in 1 year.
== END | disposition home or self-care (01) ==
LOC: RADMAMWWP 15:05
PROVIDERS: ATTEND Family Medicine
DX: Z12.31 Encounter for screening mammogram for malignant neoplasm of breast (principal)
CPT/HCPCS: 77063; 77067

== ENCOUNTER → 2020-08-24 | Outpatient (CLI) | payer MEDICARE ==
--- NOTE | 2020-08-25 07:01 | US ---
EXAMINATION TYPE: US venous doppler duplex LE DATE OF EXAM: 08/24/2020 5:04 PM COMPARISON: NONE CLINICAL HISTORY: R60.0 Localized edema. edema SIDE PERFORMED: Bilateral TECHNIQUE: The lower extremity deep venous system is examined utilizing real time linear array sonog michael with graded compression, doppler sonography and color-flow sonography. VESSELS IMAGED: Common Femoral Vein Deep Femoral Vein Greater Saphenous Vein * Femoral Vein Popliteal Vein Small Saphenous Vein * Proximal Calf Veins (* superficial vessels) Right Leg: Negative for DVT Left Leg: Negative for DVT IMPRESSION: Grayscale, color doppler, spectral doppler imaging performed of the deep veins of the lo wer extremities. There is normal flow, compressibility, vascular waveforms.
== END | disposition home or self-care (01) ==
LOC: RADUSWWP 15:50
PROVIDERS: ATTEND Family Medicine
DX: R60.0 Localized edema (principal)
CPT/HCPCS: 93970

== ENCOUNTER → 2020-08-25 | Outpatient (CLI) | payer MEDICARE ==
--- NOTE | 2020-08-25 13:48 | XR ---
EXAMINATION TYPE: XR chest 2V DATE OF EXAM: 08/25/2020 COMPARISON: 03/01/2018 chest x-ray HISTORY: R04.2 TECHNIQUE: Frontal and lateral views of the chest are obtained. FINDINGS: There is no focal air space opacity, pleural effusion, or pneumothorax seen. The cardiac silhouette size is within normal limits. Prominent lung volume and flattening the hemidiaphragms sug gests underlying COPD. Surgical clips present in the upper abdomen. There is thoracic spondylosis. Ev entration of right hemidiaphragm is again noted. Arthropathy noted in the shoulders. Aorta is dense. The osseous structures are intact. IMPRESSION: No acute cardiopulmonary process.
== END | disposition home or self-care (01) ==
LOC: RADXRMAIN 12:16
PROVIDERS: ATTEND Nurse Practitioner Family
DX: R04.2 Hemoptysis (principal)
CPT/HCPCS: 71046

== ENCOUNTER → 2023-03-01 | Outpatient (CLI) | payer MEDICARE ==
--- NOTE | 2023-03-02 08:51 | XR ---
EXAMINATION TYPE: XR abdomen 1V DATE OF EXAM: 03/01/2023 COMPARISON: NONE HISTORY: constipation TECHNIQUE: One view abdominal series FINDINGS: The osseous structures are intact. The bowel gas pattern is nonspecific. Lung bases are clear. Surg ical clips right upper quadrant. No evidence of obstruction. Elevated right hemidiaphragm. IMPRESSION: 1. Nonspecific abdomen. There does not appear to be a significant amount of retained fecal debris.
== END | disposition home or self-care (01) ==
LOC: RADXRMAIN 16:56
PROVIDERS: ATTEND Family Medicine
DX: K59.00 Constipation, unspecified (principal)
CPT/HCPCS: 74018

== ENCOUNTER → 2023-04-24 | Outpatient (CLI) | payer MEDICARE ==
--- NOTE | 2023-04-24 17:38 | MM ---
Reason for Exam: Screening (asymptomatic). Last mammogram was performed 4 year(s) and 0 month(s) ago. Patient History: Menarche at age 13. First Full-Term at age 28. Postmenopausal. Maternal grandmother had breast cancer. Maternal aunt had breast cancer. Maternal aunt had breast cancer. Paternal aunt had breast cancer under age 50. Paternal aunt had breast cancer under age 50. Paternal aunt had breast cancer at or over age 50. Paternal aunt had breast cancer at or over age 50. Paternal aunt had breast cancer at or over age 50. Risk Values: Elizabeth 5 year model risk: 2.0%. NCI Lifetime model risk: 4.8%. Prior Study Comparison: 04/14/2004 Bilateral Screening Mammogram, [facility]. 05/08/2018 Bilateral Screening Mammogram, [facility]. 05/10/2019 Bilateral Screening Mammogram, [facility]. Tissue Density: There are scattered fibroglandular densities. Findings: Analyzed By CAD. Chronic nodularity on the left. There is no suspicious group of microcalcifications or new suspicious mass in either breast. Overall Assessment: Benign, BI-RAD 2 Management: Screening Mammogram of both breasts in 1 year. . Patient should continue monthly self-breast exams. A clinical breast exam by your physician is recommended on an annual basis. This exam should not preclude additional follow-up of suspicious palpable abnormalities. Note on Elizabeth scores and lifetime risk: 1. A Elizabeth score greater than 3% is considered moderate risk. If this is the case, consider specialist referral to assess eligibility for a risk reducing agent. 2. If overall lifetime risk for the development of breast cancer is 20% or higher, the patient may qualify for future screening with alternating mammogram and breast MRI. Electronically signed and approved by: Heather Bal M.D. Radiologist
== END | disposition home or self-care (01) ==
LOC: RADMAMWWP 11:03
PROVIDERS: ATTEND Family Medicine
DX: Z12.31 Encounter for screening mammogram for malignant neoplasm of breast (principal); Z78.0 Asymptomatic menopausal state; Z80.3 Family history of malignant neoplasm of breast
CPT/HCPCS: 77063; 77067

== ENCOUNTER → 2023-08-09 | Outpatient (CLI) | payer MEDICARE ==
--- NOTE | 2023-08-09 10:34 | CT ---
EXAMINATION TYPE: CT sinus wo con DATE OF EXAM: 08/09/2023 COMPARISON: None HISTORY: Epistaxis CT DLP: 603 mGycm. Automated Exposure Control for Dose Reduction was Utilized. TECHNIQUE: CT scan of the sinuses is performed without contrast, axial images are obtained, coronal r eformatted images are also reviewed. FINDINGS: The paranasal sinuses including the frontal, ethmoid, sphenoid, and maxillary sinuses bila terally are well-aerated with minimal ethmoidal chronic appearing sinusitis. No air-fluid levels. Th e ostiomeatal complex is patent bilaterally on the coronal images. Slight nasal septal deviation to the left with small bony spur projecting to the left. Moderate size bilateral naif bullosa. There is a Amrita cell on the right. Visualized portion of mastoid air cells show no abnormal opacification. The globes are intact bilate rally. IMPRESSION: 1. Minimal chronic appearing ethmoidal sinusitis with the ostiomeatal complex patent bilaterally.
== END | disposition home or self-care (01) ==
LOC: RADCTMAIN 09:14
PROVIDERS: ATTEND Otolaryngology
DX: J32.2 Chronic ethmoidal sinusitis (principal); R04.0 Epistaxis
CPT/HCPCS: 70486